=== PATIENT | male | born 1970 | race Caucasian/White ===

== ENCOUNTER 2020-12-17 05:52 | Day surgery (SDC) | payer OTHER ==
[~2020-12-17 05:52] MED LIST: Dextrose 5%-0.45% NaCl 1,000 ML IV SCH; Sodium Chloride 0.9% 10 ML Syringe FLUSH PRN
[2020-12-17] MEDS ORDERED: Midazolam 1 MG/ML 2 ML SDV IV ONE ×8 (05:53→07:16)
[2020-12-17] MEDS ORDERED: fentaNYL 100 MCG/2 ML SDV IV ONE ×7 (05:53→07:09)
[2020-12-17] MEDS ORDERED: Midazolam 1 MG/ML 2 ML SDV ONE (06:12)
[2020-12-17] MEDS ORDERED: fentaNYL 100 MCG/2 ML SDV ONE (06:12)
--- NOTE | 2020-12-17 10:58 | OR ---
DATE: 12/17/2020 PROCEDURE: Total colonoscopy, NBI, and cold snare polypectomy. INSTRUMENT USED: [id number] Olympus video colonoscope. PREMEDICATIONS: Fentanyl 200 mcg intravenous, Versed 5 mg intravenous. Nasal O2 cannula. The procedure was done under pulse oximetry, BP recording, and hospital monitor. INDICATION: Screening colonoscopic examination is done for detection of any polypoid lesions and removal, endoscopic hemostasis therapy if needed. DESCRIPTION OF PROCEDURE: Initial rectal exam was unremarkable. Rigid anoscopy was normal. The colonoscope was passed with relative ease up to the ileocecal area. Photographs were taken of the normal-appearing cecum, identified by landmarks of appendiceal orifice and double-bulged ileocecal folds. No bleeding was noted from any of the visualized areas at the commencement of the examination. The bowel preparation was found to be adequate, Draper scale 3 in all the regions, total score 9. No stricture. No vascular ectasia. No large isolated ulcerations seen. No evidence of diffuse inflammatory bowel disease in the form of friability, contact bleeding, or ulcerations. Probing the proximal sides of folds and flexures using adequate distention and clearing up the stool material, withdrawal of the scope was made. In the proximal descending colon, diminutive benign-appearing polyp was noted, NBI views were obtained, photographs were taken, cold snare polypectomy was done, the tissue was retrieved and sent for histopathology. No bleeding was noted from any of the visualized areas at the completion of the examination. IMPRESSION: Diminutive descending colon polyp. The patient tolerated the procedure well. [facility] /[id number]
== END 2020-12-17 09:33 | disposition home or self-care (01) ==
LOC: DL.ENDO 05:52
PROVIDERS: ATTEND Internal Medicine Gastroenterology
DX: Z12.11 Encounter for screening for malignant neoplasm of colon (principal); D12.4 Benign neoplasm of descending colon; E03.9 Hypothyroidism, unspecified; F17.200 Nicotine dependence, unspecified, uncomplicated; K21.9 Gastro-esophageal reflux disease without esophagitis; Z98.890 Other specified postprocedural states
CPT/HCPCS: 45385; J2250; J3010; J7042

== ENCOUNTER 2021-03-06 13:15 | Emergency (ER) | payer OTHER ==
--- NOTE | 2021-03-06 14:05 | EDM.PDOC ---
ED HPI GENERAL MEDICAL PROBLEM - General Chief Complaint: Skin Complaint Stated Complaint: LEFT LEG SWOLLEN RED HOT Time Seen by Provider: 03/06/21 13:50 Source of Information: Reports: Patient History Limitations: Reports: No Limitations - History of Present Illness INITIAL COMMENTS - FREE TEXT/NARRATIVE: This 50 yo male patient reports to the ED with swelling and pain in his left knee. 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 The patient reports he noticed his left knee was "warm". Duration: Day(s): (2) Location: Reports: Lower Extremity, Left Quality: Reports: Ache, Dull Severity: Moderate Improves with: Reports: None Worsens with: Reports: None Context: Reports: Other Associated Symptoms: Reports: No Other Symptoms - Related Data Allergies Allergy/AdvReac Type Severity Reaction Status Date / Time No Known Allergies Allergy Verified 03/06/21 13:40 Home Meds: Home Meds Acetaminophen 325 - 650 mg PO Q8H PRN 12/14/20 [History] Acetaminophen/HYDROcodone [[place] 325-5 MG] 1 tab PO Q8H PRN 12/14/20 [History] Levothyroxine 112 mcg PO ACBREAKFAST 12/14/20 [History] Lidocaine 5% [Lidoderm 5%] 1 patch TOP DAILY PRN 12/14/20 [History] Nabumetone [Relafen] 750 mg PO DAILY 12/14/20 [History] Omeprazole 20 mg PO DAILY 12/14/20 [History] Past Medical History HEENT History: Reports: Hard of Hearing Cardiovascular History: Reports: None Respiratory History: Reports: None Gastrointestinal History: Reports: GERD Genitourinary History: Reports: None Musculoskeletal History: Reports: Back Pain, Chronic, Neck Pain, Chronic, Other (See Below) Other Musculoskeletal History: S/P LEFT ROTATOR CUFF REPAIR. HX OF SEPTIC ARTHRITIS D/T UNKNOWN ORGANISM. HX OF OSTEOMYELITIS Neurological History: Reports: None Psychiatric History: Reports: Anxiety Endocrine/Metabolic History: Reports: Hypothyroidism Hematologic History: Reports: None Immunologic History: Reports: None Oncologic (Cancer) History: Reports: None - Infectious Disease History Infectious Disease History: Reports: Chicken Pox - Past Surgical History Head Surgeries/Procedures: Reports: None HEENT Surgical History: Reports: Oral Surgery Cardiovascular Surgical History: Reports: None Respiratory Surgical History: Reports: None GI Surgical History: Reports: None Male Surgical History: Reports: Vasectomy Endocrine Surgical History: Reports: None Neurological Surgical History: Reports: None Musculoskeletal Surgical History: Reports: Other (See Below) Other Musculoskeletal Surgeries/Procedures:: S/P RIGHT FOOT SURGERY Oncologic Surgical History: Reports: None Dermatological Surgical History: Reports: Other (See Below) Social & Family History - Family History Family Medical History: No Pertinent Family History - Tobacco Use Tobacco Use Status *Q: Current Every Day Tobacco User Years of Tobacco use: 25 Packs/Tins Daily: 1 - Caffeine Use Caffeine Use: Reports: Coffee, Energy Drinks, Soda Other Caffeine Use: 2 CUPS COFFEE DAILY - Recreational Drug Use Recreational Drug Use: No ED ROS GENERAL - Review of Systems Review Of Systems: Comprehensive ROS is negative, except as noted in HPI. ED EXAM, SKIN/RASH Exam: See Below Exam Limited By: No Limitations General Appearance: Alert, WD/WN, Mild Distress Eye Exam: Bilateral Eye: EOMI, Normal Inspection, PERRL Ears: Normal External Exam, Normal Canal, Hearing Grossly Normal, Normal TMs Nose: Normal Inspection, Normal Mucosa, No Blood Throat/Mouth: Normal Inspection, Normal Lips, Normal Teeth, Normal Gums, Normal Oropharynx, Normal Voice, No Airway Compromise Head: Atraumatic, Normocephalic Neck: Normal Inspection, Supple, Non-Tender, Full Range of Motion Respiratory/Chest: No Respiratory Distress, Lungs Clear, Normal Breath Sounds, No Accessory Muscle Use, Chest Non-Tender Cardiovascular: Normal Peripheral Pulses, Regular Rate, Rhythm, No Edema, No Gallop, No JVD, No Murmur, No Rub GI/Abdominal: Normal Bowel Sounds, Soft, Non-Tender, No Organomegaly, No Distention, No Abnormal Bruit, No Mass (Male) Exam: Deferred Rectal (Males) Exam: Deferred Back Exam: Normal Inspection, Full Range of Motion, NT Extremities: Leg Pain (left knee swelling, pain, warm to touch) Neurological: Alert, Oriented, CN II-XII Intact, Normal Cognition, Normal Gait, Normal Reflexes, No Motor/Sensory Deficits Psychiatric: Normal Affect, Normal Mood Skin: Increased Warmth (left knee) Location, Skin: Lower Extremity, Left Associated features: Warmth, Tenderness, Swelling Lymphatic: No Adenopathy Course - Vital Signs Last Recorded V/S: Last Vital Signs Temp 96.5 F L 03/06/21 13:27 Pulse 61 03/06/21 13:27 Resp 16 03/06/21 13:27 BP 136/78 03/06/21 13:27 Pulse Ox 100 03/06/21 13:27 - Orders/Labs/Meds Orders: Active Orders 24 hr Category Date Time Status Peripheral IV Care [RC] . DIRECTED Care 03/06/21 13:29 Active CULTURE BLOOD [BC] Stat Lab 03/06/21 13:34 Received CULTURE BLOOD [BC] Stat Lab 03/06/21 13:38 Received Blood Culture x2 Reflex Set [OM.PC] Stat Oth 03/06/21 13:28 Ordered Labs: Laboratory Tests 03/06/21 03/06/21 03/06/21 Range/Units 13:38 13:38 13:38 WBC 9.9 (5.0-10.0) 10^3/uL RBC 3.60 L (4.6-6.2) 10^6/uL Hgb 11.7 L (14.0-18.0) g/dL Hct 34.9 L (40.0-54.0) % MCV 96.9 (80-100) fL MCH 32.5 (27.0-34.0) pg MCHC 33.5 (33.0-35.0) g/dL Plt Count 229 (150-450) 10^3/uL Neut % (Auto) 75.5 H (42.2-75.2) % Lymph % (Auto) 15.0 L (20.5-50.1) % Cochran % (Auto) 7.3 (2-8) % Eos % (Auto) 1.9 (1.0-3.0) % Baso % (Auto) 0.3 (0.0-1.0) % D-Dimer, Quantitative 1010 H (0-400) ng/mL Sodium 141 (136-145) mmol/L Potassium 3.9 (3.5-5.1) mmol/L Chloride 104 (98-107) mmol/L Carbon Dioxide 26 (21-32) mmol/L Anion Gap 14.9 H (7-13) mEq/L BUN 13 (7-18) mg/dL Creatinine 0.94 (0.70-1.30) mg/dL Est Cr Clr Drug Dosing 103.19 mL/min Estimated GFR (MDRD) > 60 BUN/Creatinine Ratio 13.8 (No establ ref range) Glucose 119 H (70-99) mg/dL Uric Acid (3.5-7.2) mg/dL Calcium 8.5 (8.5-10.1) mg/dL Total Bilirubin 0.6 (0.2-1.0) mg/dL AST 178 H (15-37) U/L ALT 262 H (16-63) U/L Alkaline Phosphatase 127 H (46-116) U/L Total Protein 6.8 (6.4-8.2) g/dL Albumin 3.1 L (3.4-5.0) g/dL Globulin 3.7 Albumin/Globulin Ratio 0.84 07/14/21 Range/Units 13:38 WBC (5.0-10.0) 10^3/uL RBC (4.6-6.2) 10^6/uL Hgb (14.0-18.0) g/dL Hct (40.0-54.0) % MCV (80-100) fL MCH (27.0-34.0) pg MCHC (33.0-35.0) g/dL Plt Count (150-450) 10^3/uL Neut % (Auto) (42.2-75.2) % Lymph % (Auto) (20.5-50.1) % Cochran % (Auto) (2-8) % Eos % (Auto) (1.0-3.0) % Baso % (Auto) (0.0-1.0) % D-Dimer, Quantitative (0-400) ng/mL Sodium (136-145) mmol/L Potassium (3.5-5.1) mmol/L Chloride (98-107) mmol/L Carbon Dioxide (21-32) mmol/L Anion Gap (7-13) mEq/L BUN (7-18) mg/dL Creatinine (0.70-1.30) mg/dL Est Cr Clr Drug Dosing mL/min Estimated GFR (MDRD) BUN/Creatinine Ratio (No establ ref range) Glucose (70-99) mg/dL Uric Acid 4.5 (3.5-7.2) mg/dL Calcium (8.5-10.1) mg/dL Total Bilirubin (0.2-1.0) mg/dL AST (15-37) U/L ALT (16-63) U/L Alkaline Phosphatase (46-116) U/L Total Protein (6.4-8.2) g/dL Albumin (3.4-5.0) g/dL Globulin Albumin/Globulin Ratio Departure - Departure Time of Disposition: 15:44 Disposition: Home, Self-Care 01 Condition: Fair Clinical Impression: Zhang cyst Qualifiers: Laterality: left Qualified Code(s): M71.22 - Synovial cyst of popliteal space [Zhang], left knee - Discharge Information *PRESCRIPTION DRUG MONITORING PROGRAM REVIEWED*: Not Applicable *COPY OF PRESCRIPTION DRUG MONITORING REPORT IN PATIENT KHOI: Not Applicable Instructions: Zhang Cyst Forms: ED Department Discharge Care Plan Goals: The patient was advised of the examination, lab and ultrasound results during the visit. The patient was discharged with a script for Keflex (500 mg) #30 to take 1 by mouth 3 times per day for 10 days. The patient was encouraged to avoid pressure to the back of the left knee until the swelling, pain and redness reduce. The patient may take Tylenol and ibuprofen as directed for temporary symptom relief. If the patient has any additional symptoms or concerns, the patient should either return to the emergency department or visit his primary care facility. Sepsis Event Note (ED) - Evaluation Sepsis Screening Result: No Definite Risk - Focused Exam Vital Signs: Vital Signs Temp Pulse Resp BP Pulse Ox 03/06/21 13:27 96.5 F L 61 16 136/78 100 - My Orders Last 24 Hours: My Active Orders 03/06/21 13:28 Blood Culture x2 Reflex Set [OM.PC] Stat 03/06/21 13:29 Peripheral IV Care [RC] . DIRECTED 03/06/21 13:34 CULTURE BLOOD [BC] Stat 03/06/21 13:38 CULTURE BLOOD [BC] Stat - Assessment/Plan Last 24 Hours: My Active Orders 03/06/21 13:28 Blood Culture x2 Reflex Set [OM.PC] Stat 03/06/21 13:29 Peripheral IV Care [RC] . DIRECTED 03/06/21 13:34 CULTURE BLOOD [BC] Stat 03/06/21 13:38 CULTURE BLOOD [BC] Stat
[2021-03-06 14:06] LABS: ANION GAP 14.9 mEq/L (7-13); CHLORIDE,CL 104 mmol/L (98-107); SODIUM,NA 141 mmol/L (136-145)
--- NOTE | 2021-03-06 15:39 | US ---
EXAMINATION: Venous Doppler Lwr Ext Lt SEX: Male AGE: 50 years CLINICAL HISTORY: 50-year-old male experiencing left knee pain and swelling. 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 Serum D dimer 1010. INTERPRETATION: Abnormal. 1. Large, avascular cystic collection of fluid behind the left knee has appearance most consistent with Zhang's cyst. 2. No sign of intraluminal echogenic thrombus identified in the deep veins of the left groin, thigh, knee or calf. 3. Satisfactory augmentation and venous waveforms demonstrated respectively in the peroneal/posterior tibial veins of the left calf, popliteal vein behind the left knee, and proximally in the superficial/common femoral veins thigh and groin. CONCLUSION: Zhang's cyst. No current evidence DVT left lower extremity.
== END 2021-03-06 15:56 | disposition home or self-care (01) ==
LOC: DL.ED 13:15
DX: M71.22 Synovial cyst of popliteal space [Baker], left knee (principal); K21.9 Gastro-esophageal reflux disease without esophagitis; E03.9 Hypothyroidism, unspecified; Z72.0 Tobacco use; Z79.899 Other long term (current) drug therapy
CPT/HCPCS: 36415; 80053; 84550; 85025; 85379; 87040; 93971; 99283; 99284-25

== ENCOUNTER 2022-10-25 16:20 | Emergency (ER) | payer OTHER ==
[2022-10-25] MEDS ORDERED: Acetaminophen/HYDROcodone 325-10 MG Tab PO ONE ×2 (16:21→17:13)
[2022-10-25] MEDS ORDERED: Ketorolac 30 MG/ML SDV IM ONE (17:13)
[2022-10-25] MEDS ORDERED: Acetaminophen/HYDROcodone 325-10 MG Tab ONE (17:21)
== END 2022-10-25 17:40 | disposition home or self-care (01) ==
LOC: DL.ED 16:20
DX: S46.011A Strain of muscle(s) and tendon(s) of the rotator cuff of right shoulder, initial encounter (principal); K21.9 Gastro-esophageal reflux disease without esophagitis; E03.9 Hypothyroidism, unspecified; Z79.899 Other long term (current) drug therapy; W00.0XXA Fall on same level due to ice and snow, initial encounter
CPT/HCPCS: 73030; 96372; 99283; 99284; A9270; J1885